=== PATIENT | male | born 2000 | race Caucasian/White ===

== ENCOUNTER 2018-10-22 13:59 | Emergency (ER) | payer BC ==
[~2018-10-22] VITALS: Ht 185.4 cm; Wt 90.7 kg
[2018-10-22 14:20] VITALS: BP 108/66
--- NOTE | 2018-10-22 14:20 | NUR ---
ED Nurse Note: PT WALKED IN TO ER TODAY FROM HOME. AOX4. PT C/O LEFT EAR PAIN, 6/10 X 2 DAYS. PT DENIES ANY TRAUMA OR DISCHARGE. PT DENIES CHANGES IN HEARING.
--- NOTE | 2018-10-22 14:41 | Emergency Room Report ---
History of Present Illness General Chief Complaint: Earache Source: Patient Present Illness HPI 18-year-old male presents to the emergency department complaining of left ear pain 2 days. Patient reports that he initially had upper respiratory infection which has resolved and then he began having discomfort in his ear. Patient denies Q-tip use, trauma to the ear or having ear discharge. Patient denies changes in hearing. Denies fevers or chills. Rates his pain as 7/10 in severity that is localized and dull. no aggravating or relieving factors. Allergies: Coded Allergies: CARBAMAZEPINE (Verified Allergy, Unknown, Shortness of Breath, 10/22/18) Patient History Past Medical History: see triage record Past Surgical History: none Pertinent Family History: none Reviewed Nursing Documentation: PMH: Agreed; PSxH: Agreed Nursing Documentation-PMH Past Medical History: No Stated History Review of Systems All Other Systems: negative except mentioned in HPI Physical Exam Vital Signs Date Time Temp Pulse Resp B/P (MAP) Pulse Ox O2 Delivery O2 Flow Rate FiO2 10/22/18 14:17 97.5 79 18 104/63 97 Room Air Sp02 EP Interpretation: reviewed, normal General Appearance: no apparent distress, alert, GCS 15, non-toxic Head: normocephalic, atraumatic Eyes: bilateral eye normal inspection, bilateral eye PERRL ENT: hearing grossly normal, normal pharynx, normal voice, uvula midline, moist mucus membranes, nasal congestion, other - Left Ear is erythematous and bulging , no external tragal tenderness, canal is WNL other than some visible cerumen. Neck: full range of motion, no meningismus Respiratory: chest non-tender, lungs clear, normal breath sounds, speaking full sentences Cardiovascular #1: regular rate, rhythm Musculoskeletal: back normal, gait/station normal, normal range of motion, non- tender Neurologic: alert, oriented x3, responsive, motor strength/tone normal, sensory intact, speech normal, grossly normal Skin: normal color, no rash, warm/dry, well hydrated Lymphatic: no adenopathy Medical Decision Making PA Attestation Dr. Tapia is my supervising Physician whom patient management has been discussed with. Diagnostic Impression: Primary Impression: Otitis media Qualified Codes: H66.90 - Otitis media, unspecified, unspecified ear ER Course 18-year-old male presents to the emergency department complaining of left ear pain 2 days. Patient reports that he initially had upper respiratory infection which has resolved and then he began having discomfort in his ear. Patient denies Q-tip use, trauma to the ear or having ear discharge. Patient denies changes in hearing. Denies fevers or chills. Rates his pain as 7/10 in severity that is localized and dull. no aggravating or relieving factors. Ddx considered but are not limited to OM, OE, mastoiditis, TM perforation, FB Vital signs: are WNL, pt. is afebrile H&PE are most consistent with otitis media ORDERS: none required at this time, the diagnosis is clinical -OTOSCOPY: Left Ear is erythematous and bulging , no external tragal tenderness , canal is WNL other than some visible cerumen. ED INTERVENTIONS: -Tylenol PO DISCHARGE: At this time pt. is stable for d/c to home. With PO ABX. Will provide printed patient care instructions, and any necessary prescriptions. Care plan and follow up instructions have been discussed with the patient prior to discharge. Last Vital Signs Date Time Temp Pulse Resp B/P (MAP) Pulse Ox O2 Delivery O2 Flow Rate FiO2 10/22/18 14:17 97.5 79 18 104/63 97 Room Air Disposition: HOME, SELF-CARE Condition: Stable Scripts Acetaminophen* (TYLENOL EXTRA STRENGTH*) 500 Mg Tablet 500 MG ORAL Q6H, #20 TAB 0 Refills Prov: Betty Ramos 10/22/18 Amoxicillin/Potassium Clav 875-125* (AUGMENTIN 875-125 TABLET*) 1 Each Tablet 1 TAB ORAL TWICE A DAY for 10 Days, #20 TAB Prov: Betty Ramos 10/22/18 Patient Instructions: Otitis Media, Adult, [id number] Additional Instructions: Take medications as directed. Follow up with a Primary Care Provider in 3-5 days, even if your symptoms have resolved. --Please review list of primary care clinics, if you do not already have a primary care provider Return sooner to ED if new symptoms occur, or current symptoms become worse. - Please note that this Emergency Department Report was dictated using [employer] furnace operator technology software, occasionally this can lead to erroneous entry secondary to interpretation by the dictation equipment. Betty Ramos Oct 22, 2018 14:41
[2018-10-22] MEDS ORDERED: TYLENOL EXTRA500 MG ORAL (14:48)
[2018-10-22] MEDS ORDERED: AUGMENTIN 875-1 EAC1 ORAL (14:48)
[2018-10-22 15:08] VITALS: BP 110/72
== END 2018-10-22 15:10 | disposition home or self-care (01) ==
LOC: EMR 14:38
DX: H66.92 Otitis media, unspecified, left ear (principal)
CPT/HCPCS: 99282